=== PATIENT | female | born 1940 | race Caucasian/White ===

== ENCOUNTER 2016-09-25 15:31 | Emergency (ER) | payer MEDICARE, BC ==
[2016-09-25] MEDS ORDERED: Alum Hydroxide/Mag Hydroxide 10 ML, Lidocaine 2% 10 ML, Promethazine 12.5 MG PO ONE ×3 (15:47)
[2016-09-25] MEDS ORDERED: GI Cocktail Oral Solution 30 ML ONE ×2 (15:55→17:30)
[2016-09-25 16:35] LABS: CHLORIDE,CL 101 mmol/L (98-107); SODIUM,NA 139 mmol/L (136-145)
[2016-09-25 18:53] VITALS: BP 120/79
--- NOTE | 2016-09-26 11:35 | ER ---
Date of Service: 09/25/2016 SUBJECTIVE: Ekaterina presents to the emergency room with complaints of epigastric pain. She states that she had chemotherapy last . She states that occasionally she experiences epigastric pain after a day or two after she has chemotherapy. She states that the discomfort is located in the mid epigastric region. She does have some associated acidic sensation in her esophagus and mouth. She denies any melena, hematochezia, or hematemesis. PAST MEDICAL HISTORY: 1. Uterine cancer. 2. GERD. 3. Hypertension. MEDICATIONS: 1. Carafate. 2. Calcium plus D. 3. Triamterene/hydrochlorothiazide. 4. Compazine. 5. Oxybutynin. 6. Metoprolol. 7. Nexium. ALLERGIES: NKDA. REVIEW OF SYSTEMS: Please see history of present illness. She denies any melena, hematochezia, hematemesis. She denies any significant shortness of breath. PHYSICAL EXAMINATION: General: This is a 76-year-old female patient, who is in no acute distress. Vital signs: Pulse rate is 102, blood pressure is 120/79, temperature is 36.9, respiratory rate 16, O2 saturations 93%. Skin: Warm, pink, and dry. Lungs: Clear to auscultation. Heart: Regular rate and rhythm. Abdomen: Soft, diffusely tender in the epigastric region. There are no masses noted. There is no hepatosplenomegaly noted. Extremities: Without edema. Neurologic: She is alert, oriented, answers all questions appropriately. Her speech is fluent. Her gait is within normal limits. DIAGNOSTIC DATA: A 12-lead EKG was obtained showing a sinus rhythm without any acute ST or T-wave abnormalities. Laboratory data: WBCs 44. To note, the patient did have a Neulasta shot. Hemoglobin is 12.0, platelets are 126. PT is 11.0, INR is 1.0. Chemistry; sodium is 139, potassium is 3.5, chloride is 101, bicarb is 28, BUN is 26, creatinine is 1.0, GFR is 54, glucose is 205, calcium is 9.1, corrected calcium is 9.74, total bilirubin is 0.5, AST is 11, ALT is 18, alkaline phosphatase is 123, total protein is 6.8, albumin is 3.2, amylase is 14. EMERGENCY ROOM COURSE: The patient was given GI cocktail here in the emergency room. She reported almost complete resolution of her epigastric discomfort. She remained stable in my care in the emergency room. ASSESSMENT: Gastroesophageal reflux and esophagitis. PLAN: The patient will be discharged. She was given another GI cocktail for home in case she begins to experience some this discomfort. She was advised to continue taking her Nexium. All questions were answered. MWK: 09/26/2016 06:55:33 MODL: 09/26/2016 11:23:26 /[id number]
== END 2016-09-25 17:30 | disposition home or self-care (01) ==
LOC: VM.ED 15:31
DX: K21.0 Gastro-esophageal reflux disease with esophagitis (principal); I10 Essential (primary) hypertension
CPT/HCPCS: 74022; 80053; 82150; 85025; 85610; 93005; 99284; A9270; J1642; 99283-GF